=== PATIENT | male | born 1975 | race Two or more races ===

== ENCOUNTER 2019-01-31 08:18 | Outpatient (CLI) | payer OTHER ==
[2019-01-31] MEDS ORDERED: GADOBUTROL 7.5 MMOL/7.5 ML VIAL ONE (10:19)
[2019-01-31] MEDS ORDERED: GADOBUTROL 7.5 MMOL/7.5 ML VIAL IVP ONE (10:35)
--- NOTE | 2019-01-31 13:36 | MRI Report ---
Reason: BILATERAL KNEE PAIN Procedure Date: 01/31/2019 Accession Number: [id number] / [id number] Procedure: MRI - Knee LT W/O CPT Code: FULL RESULT: EXAM: LEFT KNEE MRI WITHOUT CONTRAST EXAM DATE: 01/31/2019 09:45 AM. CLINICAL HISTORY: Bilateral knee pain. COMPARISON: None. TECHNIQUE: Multiplanar, multisequence T1-weighted and fluid-sensitive sequences of the knee without contrast. Other: None. FINDINGS: Bones: There is artifact from prior ACL graft surgery and tibial tuberosity surgery. Artifact is also visible anterior to the patella. There is moderate marrow edema in the intercondylar spine of the tibia. There are small osteophytes in all 3 compartments. Articular Cartilage: There is moderate erosion of the hyaline cartilage of the lateral compartment. There is mild erosion of the medial compartment cartilage. Medial Meniscus: The medial meniscus appears small, suggesting prior partial medial meniscectomy. The body is partially extruded. Lateral Meniscus: There is an incomplete radial tear at the junction of the anterior horn and body. Cruciate Ligaments: The ACL graft is noted. There is increased T1 and T2 signal in the center of the graft, within the intercondylar notch of the femur suggesting a partial-thickness tear. Collateral Ligaments: The medial collateral and lateral collateral ligamentous structures are intact. Tendons: There is thickening of the patellar tendon suggestive of a prior ACL graft harvest. Musculature: No edema or fatty atrophy. Other: There is a small joint effusion. No popliteal cyst. No loose bodies. The medial and lateral retinacula are intact. The subcutaneous tissues and fat pads are unremarkable. IMPRESSION: 1. 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 2. Partial-thickness tear of the ACL graft. 3. Incomplete radial tear at the junction of the anterior horn and body of the lateral meniscus. 4. Medial meniscus appears small, suggesting a prior partial resection. 5. Postoperative change in the patella and patella tendon. RADIA
--- NOTE | 2019-01-31 14:14 | MRI Report ---
Reason: BILATERAL KNEE PAIN Procedure Date: 01/31/2019 Accession Number: [id number] / [id number] Procedure: MRI - Knee RT W/WO CPT Code: FULL RESULT: EXAM: RIGHT KNEE MRI WITHOUT AND WITH CONTRAST EXAM DATE: 01/31/2019 10:24 AM. CLINICAL HISTORY: BILATERAL KNEE PAIN. COMPARISON: None. TECHNIQUE: Multiplanar, multisequence T1-weighted and fluid-sensitive sequences of the knee before and after administration of intravenous contrast. IV contrast: 7.5 mL of Gadavist.. Other: None. FINDINGS: Bones: There is subarticular sclerosis in the medial femoral and tibial condyle suggestive of a prior contusion. There are no visible fractures. There is a posterolateral osteochondroma from the proximal femur. It measures approximately 17 x 12 x 23 mm. There is no associated soft tissue mass. The articular cartilage cap is approximately 4 mm thick. The cartilage cap is best visualized on the sagittal image sequence, image 27. Articular Cartilage: Unremarkable. Medial Meniscus: The free margin of the posterior horn and body appears truncated, suggestive of a prior tear or partial medial meniscectomy. Lateral Meniscus: The lateral meniscus is intact. Cruciate Ligaments: The anterior and posterior cruciate ligaments are intact. Collateral Ligaments: The medial collateral and lateral collateral ligamentous structures are intact. Tendons: The quadriceps, patellar, semimembranosus, and popliteus tendons are unremarkable. Musculature: No edema or fatty atrophy. Other: There is a small joint effusion. No loose bodies. No popliteal cyst. The medial and lateral retinacula are intact. The subcutaneous tissues are unremarkable. No abscess or cellulitis. IMPRESSION: 1. Tear of the free margin of the posterior horn and body. The differential diagnosis includes prior partial medial meniscectomy. 2. Small joint effusion. 3. Prior contusion to the medial compartment. 4. Osteochondroma of the lateral femoral metaphysis has a thin cartilage cap with no associated soft tissue mass. RADIA
== END 2019-01-31 08:19 | disposition home or self-care (01) ==
LOC: DI 08:18
PROVIDERS: ATTEND Orthopaedic Surgery
DX: M17.12 Unilateral primary osteoarthritis, left knee (principal); S83.242A Other tear of medial meniscus, current injury, left knee, initial encounter; D16.21 Benign neoplasm of long bones of right lower limb; S83.241A Other tear of medial meniscus, current injury, right knee, initial encounter
CPT/HCPCS: 73721; 73723; A9585

== ENCOUNTER 2020-11-30 16:57 | Emergency (ER) | payer OTHER ==
[2020-11-30] MEDS ORDERED: oxyCODONE 5 MG TABLET PO STA (19:53)
[2020-11-30] MEDS ORDERED: MELOXICAM 7.5 MG TABLET PO STA (19:53)
--- NOTE | 2020-11-30 19:59 | ED Physician Documentation ---
PD HPI BACK PAIN - Stated complaint Stated Complaint: POST OP LEFT HIP PX/POP - Chief complaint Chief Complaint: Back Pain - History obtained from History obtained from: Patient - History of Present Illness Timing - onset: Today Timing - duration: Hours (4) Timing - details: Abrupt onset Pain level max: 8 Pain level now: 7 Location: Lower, Left Quality: Pain, Spasm Associated symptoms: No: Fever, Weakness, Numbness, Incontinent of urine, Unable to urinate, Hematuria, Incontinent of stool Improves with: Rest Worsened by: Movement Contributing factors: Other (states bent over and felt a pop in his back). No: Twisting, Trauma, Anticoagulated, Cancer, IVDA Review of Systems Constitutional: denies: Fever, Chills GI: denies: Vomiting, Diarrhea : denies: Dysuria, Frequency, Hesitancy, Incontinent Skin: denies: Rash Musculoskeletal: denies: Neck pain Neurologic: denies: Focal weakness, Numbness, Headache PD PAST MEDICAL HISTORY - Past Medical History Past Medical History: No - Past Surgical History Past Surgical History: Yes Ortho: ACL reconstruction - Present Medications Home Medications: Ambulatory Orders Medication Instructions Recorded Confirmed Aspirin [[place] Aspirin] 81 mg PO DAILY 11/30/20 11/30/20 Finasteride [Propecia] 1 mg PO DAILY 11/30/20 11/30/20 methocarbamoL [Robaxin] 500 mg PO Q6H PRN #20 tablet 11/30/20 - Allergies Allergies/Adverse Reactions: Allergies Allergy/AdvReac Type Severity Reaction Status Date / Time No Known Drug Allergies Allergy Verified 11/30/20 17:31 - Social History Does the pt smoke?: No Smoking Status: Never smoker Does the pt drink ETOH?: No Does the pt have substance abuse?: No - Immunizations Immunizations are current?: Yes PD ED PE NORMAL - Vitals Vital signs reviewed: Yes - General General: Alert and oriented X 3, No acute distress - HEENT HEENT: PERRL, Moist mucous membranes - Neck Neck: Supple, no meningeal sign - Cardiac Cardiac: RRR, Strong equal pulses - Respiratory Respiratory: No respiratory distress, Clear bilaterally - Abdomen Abdomen: Soft, Non tender, Non distended - Back Back: No spinal TTP (No midline tenderness to palpation. There is paraspinal tenderness left lower lumbar.) - Derm Derm: Warm and dry - Extremities Extremities: No tenderness to palpate (Left knee is clean dry and intact without signs of infection), Other - Neuro Neuro: Alert and oriented X 3, Other (Normal bilateral lower extremity patellar and ankle jerk reflexes. Normal great toe extension bilaterally. no saddle anesthesia) - Psych Psych: Normal mood, Normal affect Results - Vitals Vitals: Oxygen O2 Source Room air PD MEDICAL DECISION MAKING - ED course Complexity details: considered differential (No cauda equina, no spinal epidural abscess, no fracture, no aortic dissection or evidence of aneursym rupture), d/w patient ED course: Patient with back pain, appears to be sciatica. Does not appear to be related to his surgery. We will place on pain medication and muscle relaxants for home. Patient already has oxycodone at home from his surgery, he states he was unsure if he should take it for this or not. Patient and family counseled regarding signs and symptoms for which I believe and urgent re-evaluation would be necessary. Patient with good understanding of and agreement to plan and is comfortable going home at this time This document was made in part using voice recognition software. While efforts are made to proofread this document, sound alike and grammatical errors may occur. no Indication for imaging. Departure - Departure Disposition: 01 Home, Self Care Clinical Impression: Back pain Qualifiers: Back pain location: low back pain Chronicity: acute Back pain laterality: left Sciatica presence: without sciatica Qualified Code(s): M54.5 - Low back pain Condition: Good Instructions: ED Spasm Back No Trauma Follow-Up: EDY KELLEY DO [Primary Care Provider] - Within 1 week Prescriptions: methocarbamoL [Robaxin] 500 mg PO Q6H PRN #20 tablet PRN Reason: muscle spasm Comments: You can use the Robaxin as needed at home for spasm. You can use the oxycodone that you already have. Do not drive or operate heavy machinery while taking the Robaxin. Follow-up with your doctor for further care. This should improve over the next 24 to 48 hours. It may take 1 to 2 weeks to fully improve. I am prescribing a short course of narcotic pain medication for you. These are potentially dangerous and addictive medications that should be used carefully. These medications may constipate you. Take an [id number] stool softener (docusate) twice daily with plenty of water while taking these medications. If you go 24 hours without a bowel movement, take [id number] miralax, per package instructions. Do not drink or drive while taking these medications. If you received narcotic or sedating medications while in the emergency department, do not drive for 24 hours. Store this medication in a safe, secure place and out of reach of children. It is a violation of federal law to give or sell this medication to another person or to use in a manner other than prescribed. The ED will not refill narcotic prescriptions, including prescriptions lost or stolen. To dispose of unwanted medications: 1. [facility] [address] in [place] has a medication drop box. They accept prescription medications (in pill form) Tuesday through Tuesday 9:00 a.m. to 5:00 p.m. 2. The [facility] [employer] accepts prescription medications (in pill form only) for disposal year round. Call for more information. 3. Contact the [facility] for the next [facility] sponsored prescription drug collection event. , [phone], or [phone]; Discharge Date/Time: 11/30/20 20:24
[2020-11-30] MEDS: methocarbamoL 500 MG TABLET PO STA (20:04)
[2020-11-30 20:18] VITALS: BP 121/83
== END 2020-11-30 20:24 | disposition home or self-care (01) ==
LOC: ED 16:57
DX: M54.5 Low back pain (principal)
CPT/HCPCS: 99282; 99284

== ENCOUNTER 2021-05-07 14:52 | Outpatient (CLI) | payer OTHER ==
--- NOTE | 2021-05-07 15:59 | SLEEP CARE CONSULTATION ---
Information from patient questionnaire entered by Ravin York MA. I have reviewed and concur with the information entered by Ravin York MA. This document represents the service I personally performed and the decisions made by me, Theodora Marshall ARNP. History of Present Illness Service Date and Time: 05/07/2021 1452 Reason for Visit: New patient, Previously diagnosed sleep apnea Chief Complaint: reports: Unrefreshed sleep, Snoring, Excessive daytime s leepiness, Observed pauses in breathing, Fatigue, Frequent awakenings at night, Other Date of Onset: OVER A YEAR Usual bedtime: 10:00 pm Time it takes to fall asleep: 10 minutes Snores at night: Yes Observed to quit breathing while asleep: Yes Sleeps alone due to snoring: No Number of times waking at night: 3-4 Reasons for waking at night: reports: Snoring, Bathroom, Other (unknown reasons) Toss, Turn, or Twitch while sleeping: Yes Recalls having dreams: Yes Usually gets out of bed at: 0200 Feels refreshed in the morning: No Morning headache: No Sleepy or fatigued during the day: Yes Ever fallen asleep while driving: Yes (drowsy driving, no accidents) Takes day naps: Yes (1 x a month) Dreams during day naps: Yes Prior sleep studies: Yes Year and Where: [facility] Additional HPI information: EFREN CASTAÑEDA was previously diagnosed to have moderate, AHI 15.9, obstructive sleep apnea-hypopnea syndrome at [facility] on 08/21/20 and comes in today to get further study/treatment. He presents today with complaints of excessive daytime sleepiness, fatigue, frequent night awakenings, observed pauses in breathing and snoring. His would push him at night because he would stop breathing. He wakes up feeling tired and is fatigued during the day. He drink caffeine drinks to keep going throughout the day. He did get a sleep study done it did show moderate obstructive sleep apnea. This was back in July 2020 and he has not been able to get the titration study completed that was ordered. He asked his PCP for a referral for a another sleep center so that he could get his study done or get treatment. 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 Patient is and lives in [place]. Have you smoked in the past 12 months: No Alcohol use: No Caffeine use: Yes Caffeine amount and frequency: 3 cups coffee daily Family History Family history of sleep disordered breathing: Yes Family Hx Sleep Apnea: Father: Snoring, Sleep apnea - Untreated, Sibling: Snoring, Sleep apnea - Untreated, Grandparent: Snoring, Sleep apnea - Untreated Allergies and Home Medications Drug allergies reviewed: Yes (NKDA) Home medication list reviewed: Yes Allergy and home medication list: Finasteride 1 mg daily Review of Systems Cardiovascular: denies: high blood pressure Gastrointestinal: denies: heartburn Urinary: reports: frequency, urgency Neurological: denies: headaches Psychiatric: reports: anxiety Ear/Nose/Throat: reports: wisdom teeth removed. denies: tonsillectomy Endocrine: reports: sluggishness, increased urination Musculoskeletal: reports: joint pain, back pain Physical Exam Vital signs obtained and entered by: Girma NICHOLEMA Blood Pressure: 123/86 (left ) Cuff size: wrist Heart Rate: 62 O2 Saturation: 97 (with paper mask) Height: 5 ft 7 in Weight: 171 lb Body Mass Index: 26.7 BMI Classification: Overweight Neck circumference: 15 (inches) Uvula visualization: 50% Mallampati Class II Tonsils: 1+ Heart: regular rate and rhythm Lungs: clear bilaterally Impression and Plan 1. Suspected Obstructive Sleep Apnea-Hypopnea Syndrome, as previously diagnosed.suggested by a history of loud and irregular snoring, observed cessation of breath while asleep, frequent awakening during the night, unrefreshed sleep, cognitive impairment, and excessive daytime sleepiness. Narrow oropharynx and obesity are common predisposing factors for obstructive sleep apnea-hypopnea syndrome. I recommend proceeding to polysomnography to confirm the diagnosis and to assess severity. If the patient has significant sleep disordered breathing, a manual CPAP titration study will also be performed to find the optimal treatment pressure. I informed the patient of what the sleep studies involve and after some discussion, obtained agreement to proceed. The pathophysiology of obstructive sleep apnea-hypopnea syndrome was discussed with the patient and health risks of cardiovascular and cerebrovascular disease if not treated. Risks of drowsy driving discussed in detail and patient advised to avoid long distance driving and to cushion cover inspector at the first sign of drowsiness. Patient agreed to plan. * Schedule polysomnography +- manual CPAP titration study and return in 1-2 weeks after the study to discuss result and initiate therapy. * Avoid long distance driving or driving when feeling sleepy. * Avoid alcohol, sedative and muscle relaxant around bedtime. * Attempt to lose weight. * Review instructions provided by trained office staff on how to prepare for the sleep study. * Return for follow-up after sleep study completed. Counseling Topics: Weight loss health impact Visit Type: In Office Time Spent with Patient (minutes): 30 Provider Statement: I spent 100% of the Face to Face Visit with the patient with greater than 50% spent counseling the patient and coordination of care.
[2021-05-07 16:00] VITALS: BP 123/86
== END 2021-05-07 14:53 | disposition home or self-care (01) ==
LOC: SC 14:52
PROVIDERS: ATTEND Nurse Practitioner Family
DX: G47.33 Obstructive sleep apnea (adult) (pediatric) (principal)
CPT/HCPCS: 99203; 99212

== ENCOUNTER 2021-05-18 14:55 | Outpatient (CLI) | payer OTHER | END 2021-05-18 14:56 | disposition home or self-care (01) | LOC: SC 14:55 | PROVIDERS: ATTEND Nurse Practitioner Family | DX: G47.33 Obstructive sleep apnea (adult) (pediatric) (principal); R09.02 Hypoxemia | CPT/HCPCS: 95806 ==